=== PATIENT | female | born 1930 ===

== ENCOUNTER 2018-11-02 07:51 | Outpatient (CLI) | payer OTHER ==
[~2018-11-02] VITALS: Ht 152.4 cm; Wt 56.7 kg
== END 2018-11-02 10:21 | disposition home or self-care (01) ==
LOC: OFIC 805 07:51
DX: J37.0 Chronic laryngitis (principal); H90.3 Sensorineural hearing loss, bilateral; J31.0 Chronic rhinitis; H61.22 Impacted cerumen, left ear